=== PATIENT | male | born 1995 | race Caucasian/White ===

== ENCOUNTER 2025-04-08 14:19 | Emergency (ER) | payer SELFPAY ==
[~2025-04-08] VITALS: Ht 190.5 cm; Wt 87.0 kg
[2025-04-08 14:29] VITALS: O2SAT 99
[2025-04-08 14:42] VITALS: BP 134/91; PULSE 66; RESP 14; TEMP 36.8; O2SAT 100
[2025-04-08] MEDS: BACITRACIN ZINC OINT UDPKT TOP NR (17:30)
[2025-04-08] MEDS: LIDOCAINE HCL 1% 10 MG/ML 10ML VIAL INJ NR (17:30)
[2025-04-08] MEDS ORDERED: BO1 TP (21:04)
[2025-04-08] MEDS ORDERED: CLIN-194 MT (21:04)
[2025-04-08] MEDS ORDERED: HYDR-4001 MT (21:04)
[2025-04-08] MEDS ORDERED: IBUP-1455 MT (21:04)
[2025-04-08] MEDS ORDERED: BACITRACIN ZINC OINT UDPKT TOP ONE (21:15)
[2025-04-08] MEDS ORDERED: HYDROCODONE/ACETAMINOPHEN 5/325MG TABLET PO ONE (21:45)
== END 2025-04-08 22:00 | disposition home or self-care (01) ==
LOC: ER 14:46
DX: S62.632B Displaced fracture of distal phalanx of right middle finger, initial encounter for open fracture (principal); Z98.890 Other specified postprocedural states; Z79.899 Other long term (current) drug therapy; X58.XXXA Exposure to other specified factors, initial encounter; Y93.89 Activity, other specified; Y92.89 Other specified places as the place of occurrence of the external cause; Y99.8 Other external cause status
CPT/HCPCS: 99283; 73140; 12001; J2003